=== PATIENT | female | born 1970 | race African-American/Black ===

== ENCOUNTER 2016-10-16 11:42 | Emergency (ER) | payer OTHER, SELFPAY ==
[2016-10-16 12:18] LABS: BASO # 0.1 K/mm3 (0.0-0.2); BASO % 1.9 % (0.0-1.0); EOS # 0.1 K/mm3 (0.0-0.50); EOS % 2.1 % (0.0-3.0); LARGE UNSTAINED CELL # 0.2 K/mm3 (0.0-0.4); LARGE UNSTAINED CELL % 2.5 % (0.0-4.0); LYMPH # 1.4 K/mm3 (1.5-4.5); LYMPH % 18.2 % (24.0-44.0); MEAN CORPUSCULAR HEMOGLOBIN 25.4 pg (27.0-33.0); MEAN CORPUSCULAR HGB CONC 32.2 g/dl (32.0-36.5); MEAN CORPUSCULAR VOLUME 78.7 fl (80.0-96.0); MONO # 0.3 K/mm3 (0.0-0.8); MONO % 4.3 % (0.0-5.0); NEUTROPHILS # 4.8 K/mm3 (1.8-7.7); NEUTROPHILS % 71.1 % (36.0-66.0); PLATELET COUNT, AUTOMATED 228 k/mm3 (150-450); RED CELL DISTRIBUTION WIDTH 17.7 % (11.5-14.5); WHITE BLOOD COUNT 6.8 K/mm3 (4.0-10.0)
[2016-10-16] MEDS ORDERED: PHENYTOIN INJ 250 MG/5 ML VIAL (J1165) As Ordered ONE (12:24)
[2016-10-16] MEDS ORDERED: ACETAMINOPHEN 325 MG TAB As Ordered ONE (12:38)
[2016-10-16 12:40] LABS: ANION GAP 10 MEQ/L (8-16); BLOOD UREA NITROGEN 5 MG/DL (7-18); CALCIUM LEVEL 8.5 MG/DL (8.5-10.1); CARBON DIOXIDE LEVEL 25 MEQ/L (21-32); CHLORIDE LEVEL 106 MEQ/L (98-107); CREATININE FOR GFR 0.83 MG/DL (0.55-1.02); GLOMERULAR FILTRATION RATE > 60.0 (>58); GLUCOSE, FASTING 94 MG/DL (70-105); HCG, SERUM QUANTITATIVE < 1.0 MIU/ML; POTASSIUM SERUM 4.1 MEQ/L (3.5-5.1); SODIUM LEVEL 141 MEQ/L (136-145)
[2016-10-16 13:30] LABS: AMPHETAMINES LEVEL URINE NEGATIVE (NEGATIVE); BENZODIAZEPINES URINE NEGATIVE (NEGATIVE); COCAINE METABOLITE URINE NEGATIVE (NEGATIVE); CONTROL LINE INT CTR LINE PRESENT; METHADONE URINE NEGATIVE (NEGATIVE); OPIATES URINE NEGATIVE (NEGATIVE); TRICYCLIC ANTIDEPRESS URINE NEGATIVE (NEGATIVE)
[2016-10-16] MEDS ORDERED: CLOPIDOGREL 75 MG TAB As Ordered ONE (13:55)
[2016-10-16] MEDS ORDERED: CARVedilol 6.25 MG TAB As Ordered ONE (13:55)
[2016-10-16] MEDS ORDERED: levETIRAcetam 250MG TABLET (KEPPRA) As Ordered ONE (13:55)
--- NOTE | 2016-10-16 14:32 | EDDOCDS ---
Physician Documentation [facility] Name: Sabrina Greenfield Age: 46 yrs Sex: Female : 1970 Arrival Date: 10/16/2016 Time: 11:42 Bed 1 Private MD: Disposition: 10/16/16 13:45 Discharged to Home/Self Care. Impression: Epilepsy and recurrent seizures. - Condition is Stable. - Discharge Instructions: Hypertension, Seizure, Adult. - Prescriptions for Lipitor 40 mg Oral tablet - take 1 tablet by ORAL route once daily; 20 tablet. Coreg 3.125 mg Oral Tablet - take 1 tablet by ORAL route every 12 hours with food; 40 tablet. Keppra 500 mg Oral Tablet - take 1 tablet by ORAL route every 12 hours; 40 tablet. Plavix 75 mg Oral Tablet - take 1 tablet by ORAL route once daily; 20 tablet. Lisinopril 2.5 mg Oral Tablet - take 1 tablet by ORAL route once daily; 20 tablet. Aspirin 81 mg - take 1 tablet by ORAL route once daily; 90 tablet. - Medication Reconciliation, Local Pharmacy Hours form. - [facility] up[facility]; When: As soon as possible; Reason: Continuance of care. Follow up: Dacia Avitia MD; When: Call to arrange an appointment; Reason: Continuance of care. Follow up: Anson Serna MD; When: Call to arrange an appointment; Reason: Continuance of care. - Problem is an acute exacerbation. - Symptoms have improved. Historical: - Allergies: no known allergies; - Home Meds: 1. Dilantin Oral 500 mg twice a day (Last dose: 09/30/2016) 2. carvedilol 3.125 mg oral tab 1 tab (Last dose: 09/27/2016) 3. Plavix 75 mg Oral tab 1 tab once daily (Last dose: 09/27/2016) 4. levetiracetam 500 mg oral tab 1 tab 2 times per day (Last dose: 09/27/2016) 5. lisinopril 2.5 mg Oral tab 1 tab once daily (Last dose: 09/27/2016) - PMHx: Seizures; Hypertension; Heart Murmur; - PSHx: Tubal ligation; - Social history: Smoking status: Patient uses tobacco products, current some day smoker. Patient uses street drugs, marijuana, Patient/guardian denies using alcohol, No barriers to communication noted, The patient speaks fluent Georgian, Speaks appropriately for age. - Family history: Not pertinent. - : The pt / caregiver states he / she is not on anticoagulants. Home medication list is obtained from the patient. - Exposure Risk Screening:: None identified. 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 7 in. (170.18 cm) (R); Pain 8/10; 11:56 Temp 98.2(O); jrd 12:00 BP 137 / 101 (auto/); ttb 12:01 Pulse 88 MON; Pulse Ox 100% ; ttb 12:15 BP 134 / 83 (auto/); ttb 12:15 Pulse 90 MON; Pulse Ox 100% ; ttb 12:30 BP 132 / 82 (auto/); ttb 12:31 Pulse 88 MON; Pulse Ox 100% ; ttb 12:45 BP 132 / 84 (auto/); ttb 12:45 Pulse 94 MON; Pulse Ox 98% ; ttb 13:10 BP 156 / 79 (auto/); ttb 13:11 Pulse 93 MON; Pulse Ox 100% ; ttb 13:30 BP 151 / 87 (auto/); ttb 13:30 Pulse 83 MON; Pulse Ox 98% ; ttb 13:45 BP 152 / 88 (auto/); ttb 13:46 Pulse 83 MON; Pulse Ox 98% ; ttb 13:59 BP 144 / 87 (auto/); ttb 13:59 Pulse 96 MON; Pulse Ox 100% ; ttb 14:15 BP 128 / 95 (auto/); ttb 14:15 Pulse 87 MON; Resp 18 S; Pulse Ox 100% on R/A; Pain 3/10; ttb 11:50 Body Mass Index 22.24 (64.41 kg, 170.18 cm) jrd MDM: 11:56 IV Saline Lock ordered. fg 11:57 CBC with Diff Ordered. EDMS 11:57 Basic Metabolic Profile Ordered. EDMS 11:57 Urinalysis Ordered. EDMS 11:57 Urine Culture Ordered. EDMS 11:57 Hcg, Serum Quantitative Ordered. EDMS 11:57 LORazepam 0.5 mg IVP once ordered. fg 12:17 Phenytoin 500 mg IVPB once over 30 mins; dilute in 100ml of NS ordered. ke 12:17 CT Head Without Contrast Ordered. EDMS 12:25 PHENYTOIN Ordered. EDMS 12:34 Urine Toxicology Ordered. EDMS 12:34 CBC with Diff Reviewed. ke 12:38 Acetaminophen Tablet 975 mg PO once ordered. ke 12:40 ETHYL ALCOHOL (ETHANOL) Ordered. EDMS 13:33 Financial registration complete. jp5 13:39 Basic Metabolic Profile Reviewed. ke 13:39 Urinalysis Reviewed. ke 13:39 PHENYTOIN Reviewed. ke 13:39 Urine Toxicology Reviewed. ke 13:39 Hcg, Serum Quantitative Reviewed. ke 13:39 ETHYL ALCOHOL (ETHANOL) Reviewed. ke 13:46 levETIRAcetam 500 mg PO once ordered. ke 13:46 carvedilol 3.125 mg PO once ordered. ke 13:46 Plavix - Clopidogrel 75 mg PO once ordered. ke 13:48 Keppra (short red top tube) Ordered. EDMS Administered Medications: 12:15 Not Given (no sz activity): LORazepam 0.5 mg IVP once ke 12:35 Drug: NS 0.9% 100 ml, Phenytoin 500 mg Route: IVPB; Infused Over: 30 mins; Site: right ttb antecubital; 13:20 Follow up: Response: No Adverse Reaction; No significant change.; IV Status: Completed ttb infusion; IV Intake: 100ml 12:41 Drug: Acetaminophen 975 mg [acetaminophen 325 mg tablet (3 tabs)] Route: PO; ttb 14:00 Drug: levETIRAcetam 500 mg [levetiracetam 250 mg tablet (2 tabs)] Route: PO; ttb 14:00 Drug: carvedilol 3.125 mg [carvedilol 3.125 mg tablet (1 tabs)] Route: PO; ttb 14:00 Drug: Plavix - Clopidogrel 75 mg [clopidogrel 75 mg tablet (1 tabs)] Route: PO; ttb Signatures: Dispatcher [employer] EDMS Haresh Peck, DIRECTOR OF DEVELOPMENT DIRECTOR OF DEVELOPMENT Lisandra Means RN RN ttb Reji Snow jp5 Daniella Pham MD MD fg The chart was reviewed and I authenticate all verbal orders and agree with the evaluation and treatment provided.Corrections: (The following items were deleted from the chart) 12:25 11:58 PHENYTOIN (DILANTIN)+LAB ordered. EDMS EDMS 12:39 12:34 ETHYL ALCOHOL (ETHANOL)+LAB ordered. EDMS EDMS MTDD
--- NOTE | 2016-10-16 14:32 | EDDOCDS ---
Nurse's Notes [facility] Name: Sabrina Greenfield Age: 46 yrs Sex: Female : 1970 Arrival Date: 10/16/2016 Time: 11:42 Bed 1 Private MD: Diagnosis: Epilepsy and recurrent seizures Presentation: 10/16 11:43 Presenting complaint: EMS states: pt woke up this morning in bed with neck pain, jaw ttb pain, bite lee on tongue -- consistent with previous seizure activities. Abrasion to right forehead. FS86 No IV line. EMS. Adult Sepsis Screening: Patient has new or worsening altered mentation (1 point). Patient's respiratory rate is less than 22. Systolic blood pressure is greater than 100. Patient has a qSOFA score of 1- Negative Sepsis Screen. Suicide/Homicide risk assessment- the patient denies having any suicidal and/or homicidal ideations and does not present with any other emotional, behavioral or mental health complaints. Status: Patient is not a patient service rep or dependent. Transition of care: patient was not received from another setting of care. 11:43 Acuity: GARRETT Level 3 ttb 11:43 Method Of Arrival: Ambulance ttb Triage Assessment: 11:50 General: Appears in no apparent distress, well nourished, well groomed, Behavior is ttb appropriate for age, cooperative, flat, pleasant, quiet. Pain: Location: head , neck and throat 8/10. Pt Declines HIV testing. Neurological: Level of Consciousness is awake, alert, Denies weakness blurred vision numbness Reports headache. Cardiovascular: Rhythm is sinus rhythm with unifocal PVCs Chest pain is denied. Respiratory: No deficits noted. Airway is patent Respiratory effort is even, unlabored. GI: Denies nausea, vomiting. Derm: Skin is normal. Injury Description: Abrasion sustained to forehead unsure of how she got it. 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 Dilantin Oral 500 mg twice a day (Last dose: 09/30/2016) 2. carvedilol 3.125 mg oral tab 1 tab (Last dose: 09/27/2016) 3. Plavix 75 mg Oral tab 1 tab once daily (Last dose: 09/27/2016) 4. levetiracetam 500 mg oral tab 1 tab 2 times per day (Last dose: 09/27/2016) 5. lisinopril 2.5 mg Oral tab 1 tab once daily (Last dose: 09/27/2016) - PMHx: Seizures; Hypertension; Heart Murmur; - PSHx: Tubal ligation; - Social history: Smoking status: Patient uses tobacco products, current some day smoker. Patient uses street drugs, marijuana, Patient/guardian denies using alcohol, No barriers to communication noted, The patient speaks fluent Estonian, Speaks appropriately for age. - Family history: Not pertinent. - : The pt / caregiver states he / she is not on anticoagulants. Home medication list is obtained from the patient. - Exposure Risk Screening:: None identified. Screenin:53 Screening information is obtained from the patient. Fall risk: At risk due to recent ttb seizure. The following interventions are performed due to a positive Fall Risk Screen: Fall Risk is added to Special Handling on the patient Summary Screen. A Fall Risk Bracelet was applied to the patient. Side Rails are placed in the up position. A Call Marinelli is given with instruction to call for help when getting out of bed. Assistance ADL's: requires no assistance with activities of daily living. Abuse/DV Screen: The patient / caregiver reports he/she is: not in a situation that causes fear, pain or injury. Nutritional screening: No deficits noted. Advance Directives: Currently, there is no health care proxy. home support is adequate. 11:54 Advance Directives: There is an active Power of Mechanical Cad Designer, deepthi greenfield [phone] [facility]. Assessment: 12:05 General: pt states she was hospitalized in [place] at [facility] in the beginning of the ttb month for seizures. Said she was told she "had a slight stroke". States she woke in bed today, wet, had been incont of urine, abrasion. . General: see triage assessment. Neurological: Denies weakness difficulty swallowing, paresthesias numbness. Cardiovascular: Heart tones S1 S2 present Chest pain is denied. Respiratory: Airway is patent Breath sounds are clear bilaterally. GI: Bowel sounds present X 4 quads. Derm: Skin is normal. 12:42 General: meds given as documented. Pt resting comfortably on stretcher.. General: ttb Appears in no apparent distress, comfortable, Behavior is cooperative. Pain: Location: headache : tylenol give as ordered. EENT: Denies difficulty swallowing. Cardiovascular: Rhythm is sinus rhythm with unifocal PVCs Chest pain is denied. Respiratory: Airway is patent Respiratory effort is even, unlabored. 13:30 Reassessment: Patient appears in no apparent distress at this time. pt resting on ttb stretcher. Able to get to commode without assist. Daughter at bedside. Daughter informs me of medications pt is on. Pt not on dilantin as reported upon arrival multiple times. . 14:00 Reassessment: Patient appears in no apparent distress at this time. Patient states ttb feeling better. pt states she is feeling better and is comfortable going home. Pt moved here and will get PCP this week. 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 Educated on use of plavix. . Neurological: Level of Consciousness is awake, alert, Denies weakness difficulty swallowing, paresthesias. Cardiovascular: Rhythm is sinus rhythm with unifocal PVCs Chest pain is denied. Respiratory: Airway is patent Respiratory effort is even, unlabored. GI: Denies nausea, vomiting, pain. Derm: Skin is normal. 14:00 General: meds given as ordered.. ttb 14:27 Reassessment: Patient appears in no apparent distress at this time. Patient states ttb feeling better. Patient states symptoms have improved. pt states she is ready to go home at this time. Daughter agrees. To f/u with primary this week....when enrolled in [employer]. Pt states headache improved.. Adult Sepsis Screening: The patient does not have new or worsening altered mentation. Patient's respiratory rate is less than 22. Systolic blood pressure is greater than 100. Patient has a qSOFA score of 0- Negative Sepsis Screen. Pain: Location: headache. Neurological: Level of Consciousness is awake, alert, Oriented to person, place, time, Moves all extremities. Speech is normal, Facial symmetry appears normal, Pupils are PERRLA, Denies weakness difficulty swallowing, paresthesias numbness. Cardiovascular: Chest pain is denied. Respiratory: Airway is patent Respiratory effort is even, unlabored, Denies cough, shortness of breath. GI: Denies nausea, vomiting, pain. Injury Description: No known injury. Vital Signs: 11:50 BP 135 / 95; Pulse 59; Resp 18; Pulse Ox 100% on R/A; Weight 64.41 kg (R); Height 5 ft. jrd 7 in. (170.18 cm) (R); Pain 8/10; 11:56 Temp 98.2(O); jrd 12:00 BP 137 / 101 (auto/); ttb 12:01 Pulse 88 MON; Pulse Ox 100% ; ttb 12:15 BP 134 / 83 (auto/); ttb 12:15 Pulse 90 MON; Pulse Ox 100% ; ttb 12:30 BP 132 / 82 (auto/); ttb 12:31 Pulse 88 MON; Pulse Ox 100% ; ttb 12:45 BP 132 / 84 (auto/); ttb 12:45 Pulse 94 MON; Pulse Ox 98% ; ttb 13:10 BP 156 / 79 (auto/); ttb 13:11 Pulse 93 MON; Pulse Ox 100% ; ttb 13:30 BP 151 / 87 (auto/); ttb 13:30 Pulse 83 MON; Pulse Ox 98% ; ttb 13:45 BP 152 / 88 (auto/); ttb 13:46 Pulse 83 MON; Pulse Ox 98% ; ttb 13:59 BP 144 / 87 (auto/); ttb 13:59 Pulse 96 MON; Pulse Ox 100% ; ttb 14:15 BP 128 / 95 (auto/); ttb 14:15 Pulse 87 MON; Resp 18 S; Pulse Ox 100% on R/A; Pain 3/10; ttb 11:50 Body Mass Index 22.24 (64.41 kg, 170.18 cm) jrd Vitals: 11:50 Log In Time N/A - ambulance arrival. ttb ED Course: 11:42 Patient visited by Rosamaria Leal, Social Media Job Titles. deg 11:42 Ursula Santana,RN is Primary Nurse. deg 11:42 Patient moved to Waiting deg 11:42 Patient moved to 1 deg 11:45 Triage Initiated ttb 11:51 Patient visited by Zhang Izquierdo PCA. jrd 11:53 The patient / caregiver is instructed regarding the plan of care and ED course. Patient ttb has correct armband on for positive identification. Placed in gown. Bed in low position. Call light in reach. Side rails up X2. quality assurance monitor on. Pulse ox on. NIBP on. 11:54 Seizure precautions initiated. ttb 12:01 Patient visited by Johanna Peterson RN. ead 12:01 Hcg, Serum Quantitative Sent. ttb 12:01 Basic Metabolic Profile Sent. ttb 12:01 CBC with Diff Sent. ttb 12:01 Inserted saline lock: 20 gauge in right antecubital area and blood collected. The ead patient tolerated the procedure well. 12:05 Labs drawn. (by ED staff). ttb 12:07 Patient visited by Lisandra Yanes RN. ttb 12:14 Haresh Peck FNP is PHCP. ke 12:14 Patient visited by Haresh Peck FNP. ke 12:15 Patient visited by Haresh Peck FNP. ke 12:42 Patient visited by Lisandra Yanes RN. ttb 13:12 Patient visited by Haresh Peck FNP. ke 13:41 Patient visited by Lisandra Yanes RN. ttb 13:43 [facility] is Referral Physician. ke 13:44 Dacia Avitia MD is Referral Physician. ke 13:44 Ansno Serna MD is Referral Physician. ke 14:00 Keppra (short red top tube) Sent. ttb 14:07 Patient visited by Lisandra Yanes RN. ttb 14:15 Discontinued IV lock intact, bleeding controlled, pressure dressing applied, No ttb redness/swelling at site. No procedures done that require assistance. Urine collected. Clean catch specimen. Administered Medications: 12:15 Not Given (no sz activity): LORazepam 0.5 mg IVP once ke 12:35 Drug: NS 0.9% 100 ml, Phenytoin 500 mg Route: IVPB; Infused Over: 30 mins; Site: right ttb antecubital; 13:20 Follow up: Response: No Adverse Reaction; No significant change.; IV Status: Completed ttb infusion; IV Intake: 100ml 12:41 Drug: Acetaminophen 975 mg [acetaminophen 325 mg tablet (3 tabs)] Route: PO; ttb 14:00 Drug: levETIRAcetam 500 mg [levetiracetam 250 mg tablet (2 tabs)] Route: PO; ttb 14:00 Drug: carvedilol 3.125 mg [carvedilol 3.125 mg tablet (1 tabs)] Route: PO; ttb 14:00 Drug: Plavix - Clopidogrel 75 mg [clopidogrel 75 mg tablet (1 tabs)] Route: PO; ttb Intake: 13:20 IV: 100.00ml; Total: 100.00ml. ttb Order Results: Lab Order: CBC with Diff; SPEC'M 10/16/16 12:00 Test: WHITE BLOOD COUNT; Value: 6.8; Range: 4.0-10.0; Units: K/mm3; Status: F Test: RED BLOOD COUNT; Value: 4.61; Range: 4.00-5.40; Units: M/mm3; Status: F Test: HEMOGLOBIN; Value: 11.7; Range: 12.0-16.0; Abnormal: Below low normal; Units: g/dl; Status: F Test: HEMATOCRIT; Value: 36.3; Range: 36.0-47.0; Units: %; Status: F Test: MEAN CORPUSCULAR VOLUME; Value: 78.7; Range: 80.0-96.0; Abnormal: Below low normal; Units: fl; Status: F Test: MEAN CORPUSCULAR HEMOGLOBIN; Value: 25.4; Range: 27.0-33.0; Abnormal: Below low normal; Units: pg; Status: F Test: MEAN CORPUSCULAR HGB CONC; Value: 32.2; Range: 32.0-36.5; Units: g/dl; Status: F Test: RED CELL DISTRIBUTION WIDTH; Value: 17.7; Range: 11.5-14.5; Abnormal: Above high normal; Units: %; Status: F Test: PLATELET COUNT, AUTOMATED; Value: 228; Range: 150-450; Units: k/mm3; Status: F Test: NEUTROPHILS %; Value: 71.1; Range: 36.0-66.0; Abnormal: Above high normal; Units: %; Status: F Test: LYMPH %; Value: 18.2; Range: 24.0-44.0; Abnormal: Below low normal; Units: %; Status: F Test: MONO %; Value: 4.3; Range: 0.0-5.0; Units: %; Status: F Test: EOS %; Value: 2.1; Range: 0.0-3.0; Units: %; Status: F Test: BASO %; Value: 1.9; Range: 0.0-1.0; Abnormal: Above high normal; Units: %; Status: F Test: LARGE UNSTAINED CELL %; Value: 2.5; Range: 0.0-4.0; Units: %; Status: F Test: NEUTROPHILS #; Value: 4.8; Range: 1.8-7.7; Units: K/mm3; Status: F Test: LYMPH #; Value: 1.4; Range: 1.5-4.5; Abnormal: Below low normal; Units: K/mm3; Status: F Test: MONO #; Value: 0.3; Range: 0.0-0.8; Units: K/mm3; Status: F Test: EOS #; Value: 0.1; Range: 0.0-0.50; Units: K/mm3; Status: F Test: BASO #; Value: 0.1; Range: 0.0-0.2; Units: K/mm3; Status: F Test: LARGE UNSTAINED CELL #; Value: 0.2; Range: 0.0-0.4; Units: K/mm3; Status: F Lab Order: Basic Metabolic Profile; SPEC'M 10/16/16 12:00 Test: GLUCOSE, FASTING; Value: 94; Range: 70-105; Units: MG/DL; Status: F Test: BLOOD UREA NITROGEN; Value: 5; Range: 7-18; Abnormal: Below low normal; Units: MG/DL; Status: F Test: CREATININE FOR GFR; Value: 0.83; Range: 0.55-1.02; Units: MG/DL; Status: F Test: GLOMERULAR FILTRATION RATE; Value: > 60.0; Range: >58; Status: F Test: SODIUM LEVEL; Value: 141; Range: 136-145; Units: MEQ/L; Status: F Test: POTASSIUM SERUM; Value: 4.1; Range: 3.5-5.1; Units: MEQ/L; Status: F Test: CHLORIDE LEVEL; Value: 106; Range: 98-107; Units: MEQ/L; Status: F Test: CARBON DIOXIDE LEVEL; Value: 25; Range: 21-32; Units: MEQ/L; Status: F Test: ANION GAP; Value: 10; Range: 8-16; Units: MEQ/L; Status: F Test: CALCIUM LEVEL; Value: 8.5; Range: 8.5-10.1; Units: MG/DL; Status: F Test Note: ; Units are mL/min/1.73 m2 Chronic Kidney Disease Staging per NKF: Stage I & II GFR >=60 Normal to Mildly Decreased Stage III GFR 30-59 Moderately Decreased Stage IV GFR 15-29 Severely Decreased Stage V GFR <15 Very Little GFR Left ESRD GFR <15 on BENCH MOVER Lab Order: Urinalysis; SPEC'M 10/16/16 11:59 Test: APPEARANCE, URINE; Value: CLEAR; Range: CLEAR; Status: F Test: COLOR, URINE; Value: STRAW; Range: YELLOW; Status: F Test: PH,URINE; Value: 7.0; Range: 5.0-9.0; Units: UNITS; Status: F Test: SPECIFIC GRAVITY URINE AUTO; Value: 1.008; Range: 1.002-1.035; Status: F Test: PROTEIN, URINE AUTO; Value: NEGATIVE; Range: NEGATIVE; Units: mg/dL; Status: F Test: GLUCOSE, URINE (UA) AUTO; Value: NEGATIVE; Range: NEGATIVE; Units: mg/dL; Status: F Test: KETONE, URINE AUTO; Value: NEGATIVE; Range: NEGATIVE; Units: mg/dL; Status: F Test: UROBILINOGEN, URINE AUTO; Value: 0.2; Range: 0.0-2.0; Units: mg/dL; Status: F Test: BILIRUBIN, URINE AUTO; Value: NEGATIVE; Range: NEGATIVE; Status: F Test: NITRITE, URINE AUTO; Value: NEGATIVE; Range: NEGATIVE; Status: F Test: LEUKOCYTE ESTERASE, URINE AUTO; Value: NEGATIVE; Range: NEGATIVE; Status: F Test: BLOOD, URINE BLOOD; Value: NEGATIVE; Range: NEGATIVE; Status: F Test: WBC, URINE AUTO; Value: 1; Range: 0-3; Units: /HPF; Status: F Test: RBC, URINE AUTO; Value: 0; Range: 0-3; Units: /HPF; Status: F Test: BACTERIA, URINE AUTO; Value: 1+; Range: NEGATIVE; Abnormal: Above high normal; Status: F Test: SQUAMOUS EPITHELIAL CELL UR AU; Value: 0; Range: 0-6; Units: /HPF; Status: F Test: HYALINE CAST, URINE AUTO; Value: 0; Range: 0-1; Units: /LPF; Status: F Lab Order: Hcg, Serum Quantitative; SPEC'M 10/16/16 12:00 Test: HCG, SERUM QUANTITATIVE; Value: < 1.0; Units: MIU/ML; Status: F Test Note: ; GESTATIONAL AGE APPROXIMATE HCG RANGE (MIU/ML) 0.2-1 WEEK 5-50 1-2 WEEKS 50-500 2-3 WEEKS 100-5,000 3-4 WEEKS 500-10,000 4-5 WEEKS 1,000-50,000 5-6 WEEKS 10,000-100,000 6-8 WEEKS 15,000-200,000 2-3 MONTHS 10,000-100,000 NON FEMALES LESS THAN 3.0 Patient samples may contain human heterophilic antibodies that could react with immunoassays to give falsely elevated or depressed results. This assay has been designed to minimize interference from heterophilic antibodies. Elevated hCG levels have also been associated with trophoblastic disease and nontrophoblastic neoplasms. The possibility of having these diseases should be considered before a diagnosis of is made. This test is not intended for use as a surrogate marker for aiding in the diagnosis or monitoring the treatment of cancer patients. Siemens [employer]agon methodology. Lab Order: PHENYTOIN; SPEC'M 10/16/16 12:00 Test: PHENYTOIN (DILANTIN); Value: < 0.4; Range: 10.0-20.0; Abnormal: Below low normal; Units: UG/ML; Status: F Lab Order: Urine Toxicology; SPEC'M 10/16/16 11:59 Test: AMPHETAMINES LEVEL URINE; Value: NEGATIVE; Range: NEGATIVE; Status: F Test: BARBITURATES URINE; Value: NEGATIVE; Range: NEGATIVE; Status: F Test: BENZODIAZEPINES URINE; Value: NEGATIVE; Range: NEGATIVE; Status: F Test: CANNABINOIDS URINE; Value: POSITIVE; Range: NEGATIVE; Abnormal: Above high normal; Status: F Test: COCAINE METABOLITE URINE; Value: NEGATIVE; Range: NEGATIVE; Status: F Test: METHADONE URINE; Value: NEGATIVE; Range: NEGATIVE; Status: F Test: OPIATES URINE; Value: NEGATIVE; Range: NEGATIVE; Status: F Test: TRICYCLIC ANTIDEPRESS URINE; Value: NEGATIVE; Range: NEGATIVE; Status: F Test Note: ; FALSE POSITIVE RESULTS CAN BE CAUSED BY THE USE OF PANTOPRAZOLE (PROTONIX). Lab Order: ETHYL ALCOHOL (ETHANOL); SPEC'M 10/16/16 12:00 Test: ETHYL ALCOHOL (ETHANOL); Value: < 0.003; Range: 0.000-0.010; Units: %; Status: F Outcome: 13:45 Discharge ordered by Provider. ke 14:15 CT Study completed. Property :Personal belongings accompany Pt. ttb 14:27 Discharge Assessment: Patient awake, alert and oriented x 3. No cognitive and/or ttb functional deficits noted. Patient verbalized understanding of disposition instructions. Patient awake and alert. patient administered narcotics - no. The following High Risk Discharge criteria are identified: None. Discharged to home ambulatory, via wheelchair, with family. Condition: good Condition: stable Condition: improved. Discharge instructions given to patient, family, Instructed on discharge instructions, follow up and referral plans. medication usage, safety practices, Demonstrated understanding of instructions, medications, Pt was receptive of discharge instructions/ teaching. Prescriptions given X x6. 14:31 Patient left the ED. ttb Signatures: Rosamaria Leal, Social Media Job Titles Unit deg Haresh Peck, Lisandra Verdin RN RN ttb Johanna PetersonRN RN Zhang Fontanez, SHIRA CORE LAYER MACHINE OPERATOR jrzacarias Corrections: (The following items were deleted from the chart) 12:25 12:01 PHENYTOIN (DILANTIN)+LAB sent. ttb EDMS MTDD
--- NOTE | 2016-10-17 11:16 | REP ---
CT of the brain without IV contrast: There are no comparisons. There is no hemorrhage. There is no edema, mass effect or midline shift. The cortical stripe is unremarkable. Ventricles are normal size and midline. The Impression: There is no hemorrhage, acute infarct or mass. Essentially negative CT study of the brain. Signed by Johnny James MD 10/16/2016 01:04 P
--- NOTE | 2016-10-18 15:32 | EDDOCDS ---
Physician Documentation [facility] Name: Sabrina Greenfield Age: 46 yrs Sex: Female : 1970 Arrival Date: 10/16/2016 Time: 11:42 Bed 1 Private MD: Disposition: 10/16/16 13:45 Discharged to Home/Self Care. Impression: Epilepsy and recurrent seizures. - Condition is Stable. - Discharge Instructions: Hypertension, Seizure, Adult. - Prescriptions for Lipitor 40 mg Oral tablet - take 1 tablet by ORAL route once daily; 20 tablet. Coreg 3.125 mg Oral Tablet - take 1 tablet by ORAL route every 12 hours with food; 40 tablet. Keppra 500 mg Oral Tablet - take 1 tablet by ORAL route every 12 hours; 40 tablet. Plavix 75 mg Oral Tablet - take 1 tablet by ORAL route once daily; 20 tablet. Lisinopril 2.5 mg Oral Tablet - take 1 tablet by ORAL route once daily; 20 tablet. Aspirin 81 mg - take 1 tablet by ORAL route once daily; 90 tablet. - Medication Reconciliation, Local Pharmacy Hours form. - [facility]; When: As soon as possible; Reason: Continuance of care. Follow up: Dacia Avitia MD; When: Call to arrange an appointment; Reason: Continuance of care. Follow up: Anson Serna MD; When: Call to arrange an appointment; Reason: Continuance of care. - Problem is an acute exacerbation. - Symptoms have improved. Historical: - Allergies: no known allergies; - Home Meds: 1. Dilantin Oral 500 mg twice a day (Last dose: 09/30/2016) 2. carvedilol 3.125 mg oral tab 1 tab (Last dose: 09/27/2016) 3. Plavix 75 mg Oral tab 1 tab once daily (Last dose: 09/27/2016) 4. levetiracetam 500 mg oral tab 1 tab 2 times per day (Last dose: 09/27/2016) 5. lisinopril 2.5 mg Oral tab 1 tab once daily (Last dose: 09/27/2016) - PMHx: Seizures; Hypertension; Heart Murmur; - PSHx: Tubal ligation; - Social history: Smoking status: Patient uses tobacco products, current some day smoker. Patient uses street drugs, marijuana, Patient/guardian denies using alcohol, No barriers to communication noted, The patient speaks fluent Nauruan, Speaks appropriately for age. - Family history: Not pertinent. - : The pt / caregiver states he / she is not on anticoagulants. Home medication list is obtained from the patient. - Exposure Risk Screening:: None identified. 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 7 in. (170.18 cm) (R); Pain 8/10; 11:56 Temp 98.2(O); jrd 12:00 BP 137 / 101 (auto/); ttb 12:01 Pulse 88 MON; Pulse Ox 100% ; ttb 12:15 BP 134 / 83 (auto/); ttb 12:15 Pulse 90 MON; Pulse Ox 100% ; ttb 12:30 BP 132 / 82 (auto/); ttb 12:31 Pulse 88 MON; Pulse Ox 100% ; ttb 12:45 BP 132 / 84 (auto/); ttb 12:45 Pulse 94 MON; Pulse Ox 98% ; ttb 13:10 BP 156 / 79 (auto/); ttb 13:11 Pulse 93 MON; Pulse Ox 100% ; ttb 13:30 BP 151 / 87 (auto/); ttb 13:30 Pulse 83 MON; Pulse Ox 98% ; ttb 13:45 BP 152 / 88 (auto/); ttb 13:46 Pulse 83 MON; Pulse Ox 98% ; ttb 13:59 BP 144 / 87 (auto/); ttb 13:59 Pulse 96 MON; Pulse Ox 100% ; ttb 14:15 BP 128 / 95 (auto/); ttb 14:15 Pulse 87 MON; Resp 18 S; Pulse Ox 100% on R/A; Pain 3/10; ttb 11:50 Body Mass Index 22.24 (64.41 kg, 170.18 cm) jrd MDM: 11:56 IV Saline Lock ordered. fg 11:57 CBC with Diff Ordered. EDMS 11:57 Basic Metabolic Profile Ordered. EDMS 11:57 Urinalysis Ordered. EDMS 11:57 Urine Culture Ordered. EDMS 11:57 Hcg, Serum Quantitative Ordered. EDMS 11:57 LORazepam 0.5 mg IVP once ordered. fg 12:17 Phenytoin 500 mg IVPB once over 30 mins; dilute in 100ml of NS ordered. ke 12:17 CT Head Without Contrast Ordered. EDMS 12:25 PHENYTOIN Ordered. EDMS 12:34 Urine Toxicology Ordered. EDMS 12:34 CBC with Diff Reviewed. ke 12:38 Acetaminophen Tablet 975 mg PO once ordered. ke 12:40 ETHYL ALCOHOL (ETHANOL) Ordered. EDMS 13:33 Financial registration complete. jp5 13:39 Basic Metabolic Profile Reviewed. ke 13:39 Urinalysis Reviewed. ke 13:39 PHENYTOIN Reviewed. ke 13:39 Urine Toxicology Reviewed. ke 13:39 Hcg, Serum Quantitative Reviewed. ke 13:39 ETHYL ALCOHOL (ETHANOL) Reviewed. ke 13:46 levETIRAcetam 500 mg PO once ordered. ke 13:46 carvedilol 3.125 mg PO once ordered. ke 13:46 Plavix - Clopidogrel 75 mg PO once ordered. ke 13:48 Keppra (short red top tube) Ordered. EDMS 14:45 [facility] [place] Agreement was scanned into Normal and attached to record. jp5 18:47 T-Sheet-- Draft Copy was scanned into Normal and attached to record. klr 10/17 10:43 PCR was scanned into Normal and attached to record. gb Administered Medications: 10/16 12:15 Not Given (no sz activity): LORazepam 0.5 mg IVP once ke 12:35 Drug: NS 0.9% 100 ml, Phenytoin 500 mg Route: IVPB; Infused Over: 30 mins; Site: right ttb antecubital; 13:20 Follow up: Response: No Adverse Reaction; No significant change.; IV Status: Completed ttb infusion; IV Intake: 100ml 12:41 Drug: Acetaminophen 975 mg [acetaminophen 325 mg tablet (3 tabs)] Route: PO; ttb 14:00 Drug: levETIRAcetam 500 mg [levetiracetam 250 mg tablet (2 tabs)] Route: PO; ttb 14:00 Drug: carvedilol 3.125 mg [carvedilol 3.125 mg tablet (1 tabs)] Route: PO; ttb 14:00 Drug: Plavix - Clopidogrel 75 mg [clopidogrel 75 mg tablet (1 tabs)] Route: PO; ttb Signatures: Dispatcher [employer] EDMS Helga Reddy, Haresh Bueno, TINO FISHER DIP NET Lisandra Means, RN RN ttb Reji Snow jp5 Daniella Pham MD MD fg Redder, Kathie klr The chart was reviewed and I authenticate all verbal orders and agree with the evaluation and treatment provided.Corrections: (The following items were deleted from the chart) 12:25 11:58 PHENYTOIN (DILANTIN)+LAB ordered. EDMS EDMS 12:39 12:34 ETHYL ALCOHOL (ETHANOL)+LAB ordered. EDMS EDMS Attachments: 14:45 [facility] [place] Agreement jp5 18:47 T-Sheet-- Draft Copy klr Chart Complete MTDSummer
--- NOTE | 2016-10-18 15:32 | EDDOCDS ---
Physician Documentation [facility] Name: Sabrina Greenfield Age: 46 yrs Sex: Female : 1970 Arrival Date: 10/16/2016 Time: 11:42 Bed 1 Private MD: Disposition: 10/16/16 13:45 Discharged to Home/Self Care. Impression: Epilepsy and recurrent seizures. - Condition is Stable. - Discharge Instructions: Hypertension, Seizure, Adult. - Prescriptions for Lipitor 40 mg Oral tablet - take 1 tablet by ORAL route once daily; 20 tablet. Coreg 3.125 mg Oral Tablet - take 1 tablet by ORAL route every 12 hours with food; 40 tablet. Keppra 500 mg Oral Tablet - take 1 tablet by ORAL route every 12 hours; 40 tablet. Plavix 75 mg Oral Tablet - take 1 tablet by ORAL route once daily; 20 tablet. Lisinopril 2.5 mg Oral Tablet - take 1 tablet by ORAL route once daily; 20 tablet. Aspirin 81 mg - take 1 tablet by ORAL route once daily; 90 tablet. - Medication Reconciliation, Local Pharmacy Hours form. - [facility]; When: As soon as possible; Reason: Continuance of care. Follow up: Dacia Avitia MD; When: Call to arrange an appointment; Reason: Continuance of care. Follow up: Anson Serna MD; When: Call to arrange an appointment; Reason: Continuance of care. - Problem is an acute exacerbation. - Symptoms have improved. Historical: - Allergies: no known allergies; - Home Meds: 1. Dilantin Oral 500 mg twice a day (Last dose: 09/30/2016) 2. carvedilol 3.125 mg oral tab 1 tab (Last dose: 09/27/2016) 3. Plavix 75 mg Oral tab 1 tab once daily (Last dose: 09/27/2016) 4. levetiracetam 500 mg oral tab 1 tab 2 times per day (Last dose: 09/27/2016) 5. lisinopril 2.5 mg Oral tab 1 tab once daily (Last dose: 09/27/2016) - PMHx: Seizures; Hypertension; Heart Murmur; - PSHx: Tubal ligation; - Social history: Smoking status: Patient uses tobacco products, current some day smoker. Patient uses street drugs, marijuana, Patient/guardian denies using alcohol, No barriers to communication noted, The patient speaks fluent Ukrainian, Speaks appropriately for age. - Family history: Not pertinent. - : The pt / caregiver states he / she is not on anticoagulants. Home medication list is obtained from the patient. - Exposure Risk Screening:: None identified. 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 7 in. (170.18 cm) (R); Pain 8/10; 11:56 Temp 98.2(O); jrd 12:00 BP 137 / 101 (auto/); ttb 12:01 Pulse 88 MON; Pulse Ox 100% ; ttb 12:15 BP 134 / 83 (auto/); ttb 12:15 Pulse 90 MON; Pulse Ox 100% ; ttb 12:30 BP 132 / 82 (auto/); ttb 12:31 Pulse 88 MON; Pulse Ox 100% ; ttb 12:45 BP 132 / 84 (auto/); ttb 12:45 Pulse 94 MON; Pulse Ox 98% ; ttb 13:10 BP 156 / 79 (auto/); ttb 13:11 Pulse 93 MON; Pulse Ox 100% ; ttb 13:30 BP 151 / 87 (auto/); ttb 13:30 Pulse 83 MON; Pulse Ox 98% ; ttb 13:45 BP 152 / 88 (auto/); ttb 13:46 Pulse 83 MON; Pulse Ox 98% ; ttb 13:59 BP 144 / 87 (auto/); ttb 13:59 Pulse 96 MON; Pulse Ox 100% ; ttb 14:15 BP 128 / 95 (auto/); ttb 14:15 Pulse 87 MON; Resp 18 S; Pulse Ox 100% on R/A; Pain 3/10; ttb 11:50 Body Mass Index 22.24 (64.41 kg, 170.18 cm) jrd MDM: 11:56 IV Saline Lock ordered. fg 11:57 CBC with Diff Ordered. EDMS 11:57 Basic Metabolic Profile Ordered. EDMS 11:57 Urinalysis Ordered. EDMS 11:57 Urine Culture Ordered. EDMS 11:57 Hcg, Serum Quantitative Ordered. EDMS 11:57 LORazepam 0.5 mg IVP once ordered. fg 12:17 Phenytoin 500 mg IVPB once over 30 mins; dilute in 100ml of NS ordered. ke 12:17 CT Head Without Contrast Ordered. EDMS 12:25 PHENYTOIN Ordered. EDMS 12:34 Urine Toxicology Ordered. EDMS 12:34 CBC with Diff Reviewed. ke 12:38 Acetaminophen Tablet 975 mg PO once ordered. ke 12:40 ETHYL ALCOHOL (ETHANOL) Ordered. EDMS 13:33 Financial registration complete. jp5 13:39 Basic Metabolic Profile Reviewed. ke 13:39 Urinalysis Reviewed. ke 13:39 PHENYTOIN Reviewed. ke 13:39 Urine Toxicology Reviewed. ke 13:39 Hcg, Serum Quantitative Reviewed. ke 13:39 ETHYL ALCOHOL (ETHANOL) Reviewed. ke 13:46 levETIRAcetam 500 mg PO once ordered. ke 13:46 carvedilol 3.125 mg PO once ordered. ke 13:46 Plavix - Clopidogrel 75 mg PO once ordered. ke 13:48 Keppra (short red top tube) Ordered. EDMS 14:45 [facility] [place] was scanned into [employer] and attached to record. jp5 18:47 T-Sheet-- Draft Copy was scanned into [employer] and attached to record. klr 10/17 10:43 PCR was scanned into [employer] and attached to record. gb Administered Medications: 10/16 12:15 Not Given (no sz activity): LORazepam 0.5 mg IVP once ke 12:35 Drug: NS 0.9% 100 ml, Phenytoin 500 mg Route: IVPB; Infused Over: 30 mins; Site: right ttb antecubital; 13:20 Follow up: Response: No Adverse Reaction; No significant change.; IV Status: Completed ttb infusion; IV Intake: 100ml 12:41 Drug: Acetaminophen 975 mg [acetaminophen 325 mg tablet (3 tabs)] Route: PO; ttb 14:00 Drug: levETIRAcetam 500 mg [levetiracetam 250 mg tablet (2 tabs)] Route: PO; ttb 14:00 Drug: carvedilol 3.125 mg [carvedilol 3.125 mg tablet (1 tabs)] Route: PO; ttb 14:00 Drug: Plavix - Clopidogrel 75 mg [clopidogrel 75 mg tablet (1 tabs)] Route: PO; ttb Signatures: Dispatcher [employer] EDMS Helga Reddy, Haresh Bueno, TINO RUN BOAT OPERATOR Lisandra Means, RN RN ttb Reji Snow jp5 Daniella Pham MD MD fg Redder, Kathie klr The chart was reviewed and I authenticate all verbal orders and agree with the evaluation and treatment provided.Corrections: (The following items were deleted from the chart) 12:25 11:58 PHENYTOIN (DILANTIN)+LAB ordered. EDMS EDMS 12:39 12:34 ETHYL ALCOHOL (ETHANOL)+LAB ordered. EDMS EDMS Attachments: 14:45 [facility] [place] jp5 18:47 T-Sheet-- Draft Copy klr Chart Complete MTDSummer
--- NOTE | 2016-10-18 15:32 | EDDOCDS ---
Nurse's Notes [facility] Name: Sabrina Greenfield Age: 46 yrs Sex: Female : 1970 Arrival Date: 10/16/2016 Time: 11:42 Bed 1 Private MD: Diagnosis: Epilepsy and recurrent seizures Presentation: 10/16 11:43 Presenting complaint: EMS states: pt woke up this morning in bed with neck pain, jaw ttb pain, bite lee on tongue -- consistent with previous seizure activities. Abrasion to right forehead. FS86 No IV line. EMS. Adult Sepsis Screening: Patient has new or worsening altered mentation (1 point). Patient's respiratory rate is less than 22. Systolic blood pressure is greater than 100. Patient has a qSOFA score of 1- Negative Sepsis Screen. Suicide/Homicide risk assessment- the patient denies having any suicidal and/or homicidal ideations and does not present with any other emotional, behavioral or mental health complaints. Status: Patient is not a service tech or dependent. Transition of care: patient was not received from another setting of care. 11:43 Acuity: GARRETT Level 3 ttb 11:43 Method Of Arrival: Ambulance ttb Triage Assessment: 11:50 General: Appears in no apparent distress, well nourished, well groomed, Behavior is ttb appropriate for age, cooperative, flat, pleasant, quiet. Pain: Location: head , neck and throat 8/10. Pt Declines HIV testing. Neurological: Level of Consciousness is awake, alert, Denies weakness blurred vision numbness Reports headache. Cardiovascular: Rhythm is sinus rhythm with unifocal PVCs Chest pain is denied. Respiratory: No deficits noted. Airway is patent Respiratory effort is even, unlabored. GI: Denies nausea, vomiting. Derm: Skin is normal. Injury Description: Abrasion sustained to forehead unsure of how she got it. 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 Dilantin Oral 500 mg twice a day (Last dose: 09/30/2016) 2. carvedilol 3.125 mg oral tab 1 tab (Last dose: 09/27/2016) 3. Plavix 75 mg Oral tab 1 tab once daily (Last dose: 09/27/2016) 4. levetiracetam 500 mg oral tab 1 tab 2 times per day (Last dose: 09/27/2016) 5. lisinopril 2.5 mg Oral tab 1 tab once daily (Last dose: 09/27/2016) - PMHx: Seizures; Hypertension; Heart Murmur; - PSHx: Tubal ligation; - Social history: Smoking status: Patient uses tobacco products, current some day smoker. Patient uses street drugs, marijuana, Patient/guardian denies using alcohol, No barriers to communication noted, The patient speaks fluent Khmer, Speaks appropriately for age. - Family history: Not pertinent. - : The pt / caregiver states he / she is not on anticoagulants. Home medication list is obtained from the patient. - Exposure Risk Screening:: None identified. Screenin:53 Screening information is obtained from the patient. Fall risk: At risk due to recent ttb seizure. The following interventions are performed due to a positive Fall Risk Screen: Fall Risk is added to Special Handling on the patient Summary Screen. A Fall Risk Bracelet was applied to the patient. Side Rails are placed in the up position. A Call Marinelli is given with instruction to call for help when getting out of bed. Assistance ADL's: requires no assistance with activities of daily living. Abuse/DV Screen: The patient / caregiver reports he/she is: not in a situation that causes fear, pain or injury. Nutritional screening: No deficits noted. Advance Directives: Currently, there is no health care proxy. home support is adequate. 11:54 Advance Directives: There is an active Power of Doctor Of Naprapathy, deepthi greenfield [phone] [facility]. Assessment: 12:05 General: pt states she was hospitalized in [place] at [facility] in the beginning of the ttb month for seizures. Said she was told she "had a slight stroke". States she woke in bed today, wet, had been incont of urine, abrasion. . General: see triage assessment. Neurological: Denies weakness difficulty swallowing, paresthesias numbness. Cardiovascular: Heart tones S1 S2 present Chest pain is denied. Respiratory: Airway is patent Breath sounds are clear bilaterally. GI: Bowel sounds present X 4 quads. Derm: Skin is normal. 12:42 General: meds given as documented. Pt resting comfortably on stretcher.. General: ttb Appears in no apparent distress, comfortable, Behavior is cooperative. Pain: Location: headache : tylenol give as ordered. EENT: Denies difficulty swallowing. Cardiovascular: Rhythm is sinus rhythm with unifocal PVCs Chest pain is denied. Respiratory: Airway is patent Respiratory effort is even, unlabored. 13:30 Reassessment: Patient appears in no apparent distress at this time. pt resting on ttb stretcher. Able to get to commode without assist. Daughter at bedside. Daughter informs me of medications pt is on. Pt not on dilantin as reported upon arrival multiple times. . 14:00 Reassessment: Patient appears in no apparent distress at this time. Patient states ttb feeling better. pt states she is feeling better and is comfortable going home. Pt moved here and will get PCP this week. 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 Educated on use of plavix. . Neurological: Level of Consciousness is awake, alert, Denies weakness difficulty swallowing, paresthesias. Cardiovascular: Rhythm is sinus rhythm with unifocal PVCs Chest pain is denied. Respiratory: Airway is patent Respiratory effort is even, unlabored. GI: Denies nausea, vomiting, pain. Derm: Skin is normal. 14:00 General: meds given as ordered.. ttb 14:27 Reassessment: Patient appears in no apparent distress at this time. Patient states ttb feeling better. Patient states symptoms have improved. pt states she is ready to go home at this time. Daughter agrees. To f/u with primary this week....when enrolled in [employer]. Pt states headache improved.. Adult Sepsis Screening: The patient does not have new or worsening altered mentation. Patient's respiratory rate is less than 22. Systolic blood pressure is greater than 100. Patient has a qSOFA score of 0- Negative Sepsis Screen. Pain: Location: headache. Neurological: Level of Consciousness is awake, alert, Oriented to person, place, time, Moves all extremities. Speech is normal, Facial symmetry appears normal, Pupils are PERRLA, Denies weakness difficulty swallowing, paresthesias numbness. Cardiovascular: Chest pain is denied. Respiratory: Airway is patent Respiratory effort is even, unlabored, Denies cough, shortness of breath. GI: Denies nausea, vomiting, pain. Injury Description: No known injury. Vital Signs: 11:50 BP 135 / 95; Pulse 59; Resp 18; Pulse Ox 100% on R/A; Weight 64.41 kg (R); Height 5 ft. jrd 7 in. (170.18 cm) (R); Pain 8/10; 11:56 Temp 98.2(O); jrd 12:00 BP 137 / 101 (auto/); ttb 12:01 Pulse 88 MON; Pulse Ox 100% ; ttb 12:15 BP 134 / 83 (auto/); ttb 12:15 Pulse 90 MON; Pulse Ox 100% ; ttb 12:30 BP 132 / 82 (auto/); ttb 12:31 Pulse 88 MON; Pulse Ox 100% ; ttb 12:45 BP 132 / 84 (auto/); ttb 12:45 Pulse 94 MON; Pulse Ox 98% ; ttb 13:10 BP 156 / 79 (auto/); ttb 13:11 Pulse 93 MON; Pulse Ox 100% ; ttb 13:30 BP 151 / 87 (auto/); ttb 13:30 Pulse 83 MON; Pulse Ox 98% ; ttb 13:45 BP 152 / 88 (auto/); ttb 13:46 Pulse 83 MON; Pulse Ox 98% ; ttb 13:59 BP 144 / 87 (auto/); ttb 13:59 Pulse 96 MON; Pulse Ox 100% ; ttb 14:15 BP 128 / 95 (auto/); ttb 14:15 Pulse 87 MON; Resp 18 S; Pulse Ox 100% on R/A; Pain 3/10; ttb 11:50 Body Mass Index 22.24 (64.41 kg, 170.18 cm) jrd Vitals: 11:50 Log In Time N/A - ambulance arrival. ttb ED Course: 11:42 Patient visited by Rosamaria Leal, Roller Varnisher. deg 11:42 Ursula Santana,RN is Primary Nurse. deg 11:42 Patient moved to Waiting deg 11:42 Patient moved to 1 deg 11:45 Triage Initiated ttb 11:51 Patient visited by Zhang Izquierdo PCA. jrd 11:53 The patient / caregiver is instructed regarding the plan of care and ED course. Patient ttb has correct armband on for positive identification. Placed in gown. Bed in low position. Call light in reach. Side rails up X2. cleat blanker on. Pulse ox on. NIBP on. 11:54 Seizure precautions initiated. ttb 12:01 Patient visited by Johanna Peterson RN. ead 12:01 Hcg, Serum Quantitative Sent. ttb 12:01 Basic Metabolic Profile Sent. ttb 12:01 CBC with Diff Sent. ttb 12:01 Inserted saline lock: 20 gauge in right antecubital area and blood collected. The ead patient tolerated the procedure well. 12:05 Labs drawn. (by ED staff). ttb 12:07 Patient visited by Lisandra Yanes RN. ttb 12:14 Haresh Peck FNP is PHCP. ke 12:14 Patient visited by Haresh Peck FNP. ke 12:15 Patient visited by Haresh Peck FNP. ke 12:42 Patient visited by Lisandra Yanes RN. ttb 13:12 Patient visited by Haresh Peck FNP. ke 13:41 Patient visited by Lisandra Yanes RN. ttb 13:43 [facility] is Referral Physician. ke 13:44 Dacia Avitia MD is Referral Physician. ke 13:44 Anson Serna MD is Referral Physician. ke 14:00 Keppra (short red top tube) Sent. ttb 14:07 Patient visited by Lisandra Yanes RN. ttb 14:15 Discontinued IV lock intact, bleeding controlled, pressure dressing applied, No ttb redness/swelling at site. No procedures done that require assistance. Urine collected. Clean catch specimen. 14:42 Patient name changed from Vondra\\S\\\\S\\Brown\\S\\ to Vondra\\S\\Marylin\\S\\Brown. EDMS 14:45 [place] [place] was scanned into [employer] and attached to record. jp5 18:47 T-Sheet-- Draft Copy was scanned into [employer] and attached to record. klr 10/17 10:43 PCR was scanned into [employer] and attached to record. gb 11:20 CT Head Without Contrast Returned. EDMS Administered Medications: 10/16 12:15 Not Given (no sz activity): LORazepam 0.5 mg IVP once ke 12:35 Drug: NS 0.9% 100 ml, Phenytoin 500 mg Route: IVPB; Infused Over: 30 mins; Site: right ttb antecubital; 13:20 Follow up: Response: No Adverse Reaction; No significant change.; IV Status: Completed ttb infusion; IV Intake: 100ml 12:41 Drug: Acetaminophen 975 mg [acetaminophen 325 mg tablet (3 tabs)] Route: PO; ttb 14:00 Drug: levETIRAcetam 500 mg [levetiracetam 250 mg tablet (2 tabs)] Route: PO; ttb 14:00 Drug: carvedilol 3.125 mg [carvedilol 3.125 mg tablet (1 tabs)] Route: PO; ttb 14:00 Drug: Plavix - Clopidogrel 75 mg [clopidogrel 75 mg tablet (1 tabs)] Route: PO; ttb Intake: 13:20 IV: 100.00ml; Total: 100.00ml. ttb Order Results: Lab Order: CBC with Diff; SPEC'M 10/16/16 12:00 Test: WHITE BLOOD COUNT; Value: 6.8; Range: 4.0-10.0; Units: K/mm3; Status: F Test: RED BLOOD COUNT; Value: 4.61; Range: 4.00-5.40; Units: M/mm3; Status: F Test: HEMOGLOBIN; Value: 11.7; Range: 12.0-16.0; Abnormal: Below low normal; Units: g/dl; Status: F Test: HEMATOCRIT; Value: 36.3; Range: 36.0-47.0; Units: %; Status: F Test: MEAN CORPUSCULAR VOLUME; Value: 78.7; Range: 80.0-96.0; Abnormal: Below low normal; Units: fl; Status: F Test: MEAN CORPUSCULAR HEMOGLOBIN; Value: 25.4; Range: 27.0-33.0; Abnormal: Below low normal; Units: pg; Status: F Test: MEAN CORPUSCULAR HGB CONC; Value: 32.2; Range: 32.0-36.5; Units: g/dl; Status: F Test: RED CELL DISTRIBUTION WIDTH; Value: 17.7; Range: 11.5-14.5; Abnormal: Above high normal; Units: %; Status: F Test: PLATELET COUNT, AUTOMATED; Value: 228; Range: 150-450; Units: k/mm3; Status: F Test: NEUTROPHILS %; Value: 71.1; Range: 36.0-66.0; Abnormal: Above high normal; Units: %; Status: F Test: LYMPH %; Value: 18.2; Range: 24.0-44.0; Abnormal: Below low normal; Units: %; Status: F Test: MONO %; Value: 4.3; Range: 0.0-5.0; Units: %; Status: F Test: EOS %; Value: 2.1; Range: 0.0-3.0; Units: %; Status: F Test: BASO %; Value: 1.9; Range: 0.0-1.0; Abnormal: Above high normal; Units: %; Status: F Test: LARGE UNSTAINED CELL %; Value: 2.5; Range: 0.0-4.0; Units: %; Status: F Test: NEUTROPHILS #; Value: 4.8; Range: 1.8-7.7; Units: K/mm3; Status: F Test: LYMPH #; Value: 1.4; Range: 1.5-4.5; Abnormal: Below low normal; Units: K/mm3; Status: F Test: MONO #; Value: 0.3; Range: 0.0-0.8; Units: K/mm3; Status: F Test: EOS #; Value: 0.1; Range: 0.0-0.50; Units: K/mm3; Status: F Test: BASO #; Value: 0.1; Range: 0.0-0.2; Units: K/mm3; Status: F Test: LARGE UNSTAINED CELL #; Value: 0.2; Range: 0.0-0.4; Units: K/mm3; Status: F Lab Order: Basic Metabolic Profile; SPEC'M 10/16/16 12:00 Test: GLUCOSE, FASTING; Value: 94; Range: 70-105; Units: MG/DL; Status: F Test: BLOOD UREA NITROGEN; Value: 5; Range: 7-18; Abnormal: Below low normal; Units: MG/DL; Status: F Test: CREATININE FOR GFR; Value: 0.83; Range: 0.55-1.02; Units: MG/DL; Status: F Test: GLOMERULAR FILTRATION RATE; Value: > 60.0; Range: >58; Status: F Test: SODIUM LEVEL; Value: 141; Range: 136-145; Units: MEQ/L; Status: F Test: POTASSIUM SERUM; Value: 4.1; Range: 3.5-5.1; Units: MEQ/L; Status: F Test: CHLORIDE LEVEL; Value: 106; Range: 98-107; Units: MEQ/L; Status: F Test: CARBON DIOXIDE LEVEL; Value: 25; Range: 21-32; Units: MEQ/L; Status: F Test: ANION GAP; Value: 10; Range: 8-16; Units: MEQ/L; Status: F Test: CALCIUM LEVEL; Value: 8.5; Range: 8.5-10.1; Units: MG/DL; Status: F Test Note: ; Units are mL/min/1.73 m2 Chronic Kidney Disease Staging per NKF: Stage I & II GFR >=60 Normal to Mildly Decreased Stage III GFR 30-59 Moderately Decreased Stage IV GFR 15-29 Severely Decreased Stage V GFR <15 Very Little GFR Left ESRD GFR <15 on HEALTH AND SAFETY ADVISOR Lab Order: Urinalysis; SPEC'M 10/16/16 11:59 Test: APPEARANCE, URINE; Value: CLEAR; Range: CLEAR; Status: F Test: COLOR, URINE; Value: STRAW; Range: YELLOW; Status: F Test: PH,URINE; Value: 7.0; Range: 5.0-9.0; Units: UNITS; Status: F Test: SPECIFIC GRAVITY URINE AUTO; Value: 1.008; Range: 1.002-1.035; Status: F Test: PROTEIN, URINE AUTO; Value: NEGATIVE; Range: NEGATIVE; Units: mg/dL; Status: F Test: GLUCOSE, URINE (UA) AUTO; Value: NEGATIVE; Range: NEGATIVE; Units: mg/dL; Status: F Test: KETONE, URINE AUTO; Value: NEGATIVE; Range: NEGATIVE; Units: mg/dL; Status: F Test: UROBILINOGEN, URINE AUTO; Value: 0.2; Range: 0.0-2.0; Units: mg/dL; Status: F Test: BILIRUBIN, URINE AUTO; Value: NEGATIVE; Range: NEGATIVE; Status: F Test: NITRITE, URINE AUTO; Value: NEGATIVE; Range: NEGATIVE; Status: F Test: LEUKOCYTE ESTERASE, URINE AUTO; Value: NEGATIVE; Range: NEGATIVE; Status: F Test: BLOOD, URINE BLOOD; Value: NEGATIVE; Range: NEGATIVE; Status: F Test: WBC, URINE AUTO; Value: 1; Range: 0-3; Units: /HPF; Status: F Test: RBC, URINE AUTO; Value: 0; Range: 0-3; Units: /HPF; Status: F Test: BACTERIA, URINE AUTO; Value: 1+; Range: NEGATIVE; Abnormal: Above high normal; Status: F Test: SQUAMOUS EPITHELIAL CELL UR AU; Value: 0; Range: 0-6; Units: /HPF; Status: F Test: HYALINE CAST, URINE AUTO; Value: 0; Range: 0-1; Units: /LPF; Status: F Lab Order: Urine Culture; SPEC'M 10/16/16 11:59 Test: URINE CULTURE; Value: <EXTERNAL COMMENT eCWMed> FULL REPORT IN LAB NOTES (eCW and Medent).; Status: F Test: URINE CULTURE; Value: URINE CULTURE RESULT NO GROWTH CLINICAL SIGNIFICANCE 1 ORGANISM; Status: F Lab Order: Hcg, Serum Quantitative; SPEC'M 10/16/16 12:00 Test: HCG, SERUM QUANTITATIVE; Value: < 1.0; Units: MIU/ML; Status: F Test Note: ; GESTATIONAL AGE APPROXIMATE HCG RANGE (MIU/ML) 0.2-1 WEEK 5-50 1-2 WEEKS 50-500 2-3 WEEKS 100-5,000 3-4 WEEKS 500-10,000 4-5 WEEKS 1,000-50,000 5-6 WEEKS 10,000-100,000 6-8 WEEKS 15,000-200,000 2-3 MONTHS 10,000-100,000 NON FEMALES LESS THAN 3.0 Patient samples may contain human heterophilic antibodies that could react with immunoassays to give falsely elevated or depressed results. This assay has been designed to minimize interference from heterophilic antibodies. Elevated hCG levels have also been associated with trophoblastic disease and nontrophoblastic neoplasms. The possibility of having these diseases should be considered before a diagnosis of is made. This test is not intended for use as a surrogate marker for aiding in the diagnosis or monitoring the treatment of cancer patients. Siemens [id number] methodology. Lab Order: PHENYTOIN; SPEC'M 10/16/16 12:00 Test: PHENYTOIN (DILANTIN); Value: < 0.4; Range: 10.0-20.0; Abnormal: Below low normal; Units: UG/ML; Status: F Lab Order: Urine Toxicology; SPEC'M 10/16/16 11:59 Test: AMPHETAMINES LEVEL URINE; Value: NEGATIVE; Range: NEGATIVE; Status: F Test: BARBITURATES URINE; Value: NEGATIVE; Range: NEGATIVE; Status: F Test: BENZODIAZEPINES URINE; Value: NEGATIVE; Range: NEGATIVE; Status: F Test: CANNABINOIDS URINE; Value: POSITIVE; Range: NEGATIVE; Abnormal: Above high normal; Status: F Test: COCAINE METABOLITE URINE; Value: NEGATIVE; Range: NEGATIVE; Status: F Test: METHADONE URINE; Value: NEGATIVE; Range: NEGATIVE; Status: F Test: OPIATES URINE; Value: NEGATIVE; Range: NEGATIVE; Status: F Test: TRICYCLIC ANTIDEPRESS URINE; Value: NEGATIVE; Range: NEGATIVE; Status: F Test Note: ; FALSE POSITIVE RESULTS CAN BE CAUSED BY THE USE OF PANTOPRAZOLE (PROTONIX). Lab Order: ETHYL ALCOHOL (ETHANOL); SPEC'M 10/16/16 12:00 Test: ETHYL ALCOHOL (ETHANOL); Value: < 0.003; Range: 0.000-0.010; Units: %; Status: F Radiology Order: CT Head Without Contrast Test: CT Head Without Contrast REASON FOR EXAMINATION: sz; CT of the brain without IV contrast:; ; There are no comparisons.; ; There is no hemorrhage.; ; There is no edema, mass effect or midline shift.; ; The cortical stripe is unremarkable.; ; Ventricles are normal size and midline. The; ; Impression:; ; There is no hemorrhage, acute infarct or mass. Essentially negative CT study of; the brain.; ; ; Signed by; Johnny James MD 10/16/2016 01:04 P; Outcome: 13:45 Discharge ordered by Provider. ke 14:15 CT Study completed. Property :Personal belongings accompany Pt. ttb 14:27 Discharge Assessment: Patient awake, alert and oriented x 3. No cognitive and/or ttb functional deficits noted. Patient verbalized understanding of disposition instructions. Patient awake and alert. patient administered narcotics - no. The following High Risk Discharge criteria are identified: None. Discharged to home ambulatory, via wheelchair, with family. Condition: good Condition: stable Condition: improved. Discharge instructions given to patient, family, Instructed on discharge instructions, follow up and referral plans. medication usage, safety practices, Demonstrated understanding of instructions, medications, Pt was receptive of discharge instructions/ teaching. Prescriptions given X x6. 14:31 Patient left the ED. ttb Signatures: Dispatcher [employer] EDMS Rosamaria Leal, Roller Varnisher Unit deg Helga Reddy, Reg Reg gb Haresh Peck, TOOL AND DIE DESIGNER Lisandra Bradford, RN RN ttb Johanna Peterson,RN RN Zhang Fontanez, SHIRA LMSW Reji Archer Kathie klr Corrections: (The following items were deleted from the chart) 12:25 12:01 PHENYTOIN (DILANTIN)+LAB sent. ttb EDMS Chart Complete MTDD
== END 2016-10-16 14:31 | disposition home or self-care (01) ==
LOC: M ED 11:42
DX: G40.909 Epilepsy, unspecified, not intractable, without status epilepticus (principal); Z91.19 Patient's noncompliance with other medical treatment and regimen; I10 Essential (primary) hypertension; R01.1 Cardiac murmur, unspecified; Z86.73 Personal history of transient ischemic attack (TIA), and cerebral infarction without residual deficits; Z79.899 Other long term (current) drug therapy; Z79.01 Long term (current) use of anticoagulants; F17.210 Nicotine dependence, cigarettes, uncomplicated
CPT/HCPCS: 36415; 70450; 80048; 80180; 80185; 80306; 81001; 84702; 85025; 87086; 96365; 99285; G0480; J1165

== ENCOUNTER 2016-11-13 12:29 | Emergency (ER) | payer SELFPAY ==
--- NOTE | 2016-11-13 13:38 | EDDOCDS ---
Nurse's Notes [facility] Name: Sabrina Greenfield Age: 46 yrs Sex: Female : 1970 Arrival Date: 11/13/2016 Time: 12:29 Bed TR8 Private MD: Diagnosis: Benign paroxysmal vertigo;Encounter for issue of repeat prescription Presentation: 11/13 12:37 Presenting complaint: Patient states: "equilibrium is off and I'm feeling pretty dizzy, ttb slight headache". Since yesterday or the day before. No Keppra or maintenance meds for the past week. No PCP here. Adult Sepsis Screening: The patient does not have new or worsening altered mentation. Patient's respiratory rate is less than 22. Systolic blood pressure is greater than 100. Patient has a qSOFA score of 0- Negative Sepsis Screen. Suicide/Homicide risk assessment- the patient denies having any suicidal and/or homicidal ideations and does not present with any other emotional, behavioral or mental health complaints. 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 Transition of care: patient was not received from another setting of care. 12:37 Acuity: GARRETT Level 3 ttb 12:37 Method Of Arrival: Walkin/Carried/Asstd ttb Triage Assessment: 12:41 General: Appears in no apparent distress, well nourished, well groomed, Behavior is ttb appropriate for age, cooperative, pleasant. Pain: Location: headache 4/10. HIV screening NA for this visit Offered previously. Neurological: Level of Consciousness is awake, alert, vision is "getting blurrier". Neurological: Denies weakness Reports blurred vision headache. Cardiovascular: Chest pain is denied. Respiratory: No deficits noted. Airway is patent Respiratory effort is even, unlabored. Derm: Skin is normal. 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 levetiracetam 500 mg oral tab 1 tab 2 times per day (Last dose: 11/05/2016) 2. Dilantin Oral 300 mg twice a day (Last dose: 11/13/2016 08:00) 3. carvedilol 3.125 mg oral tab 1 tab (Last dose: 11/05/2016) 4. Plavix 75 mg Oral tab 1 tab once daily (Last dose: 11/05/2016) 5. lisinopril 2.5 mg Oral tab 1 tab once daily (Last dose: 11/05/2016) - PMHx: Heart Murmur; Hypertension; Seizures; - PSHx: Tubal ligation; - Social history: Smoking status: Patient uses tobacco products, current some day smoker. Patient uses street drugs, marijuana, Patient/guardian denies using alcohol, No barriers to communication noted, The patient speaks fluent Chinese, Speaks appropriately for age. - Family history: Not pertinent. - : The pt / caregiver states he / she is on anticoagulants: Plavix. Home medication list is obtained from the patient, family members, [employer] import data. - Exposure Risk Screening:: None identified. Screenin:32 Screening information is obtained from the patient. Fall risk: No risks identified. ms18 Assistance ADL's: requires no assistance with activities of daily living. Abuse/DV Screen: The patient / caregiver reports he/she is: not in a situation that causes fear, pain or injury. Nutritional screening: No deficits noted. Advance Directives: There is no living will. home support is adequate. Assessment: 13:32 General: Appears in no apparent distress, comfortable, Behavior is appropriate for age, ms18 cooperative, pleasant. Pain: Denies pain. Neurological: Level of Consciousness is awake, alert, obeys commands, Oriented to person, place, time, Reports dizziness. Respiratory: No deficits noted. Airway is patent Respiratory effort is even, unlabored. Derm: Skin is pink, warm & dry. normal. Vital Signs: 12:31 BP 179 / 102; Pulse 56; Resp 16; Temp 97.9(O); Pulse Ox 99% on R/A; Weight 62.6 kg (R); lr2 Height 5 ft. 8 in. (172.72 cm) (R); Pain 4/10; 13:21 BP 152 / 82; Pulse 51; Resp 18; Temp 99.7(TE); Pulse Ox 100% on R/A; Pain 4/10; ar3 12:31 Body Mass Index 20.98 (62.60 kg, 172.72 cm) lr2 Vitals: 12:31 Log In Time: November 13, 2016 at 12:29. lr2 ED Course: 12:30 Patient visited by Nia Jimenez. lr2 12:30 Patient moved to Waiting lr2 12:33 Patient moved to Pre RCE lr2 12:39 Triage Initiated ttb 12:43 Patient moved to Triage 2 ttb 12:44 Patient moved to Triage 3 ar3 13:02 [facility] cc[facility] 13:02 Pratik Echavarria MD is Attending Physician. cc10 13:08 Patient visited by Roberto Murphy PA-C. cc10 13:08 Patient visited by Roberto Murphy PA-C. cc10 13:16 [facility] is Referral Physician. cc10 13:22 Patient visited by Yumiko Baker PCA. ar3 13:32 Patient visited by Kayleigh Santana RN. ms18 13:32 Patient moved to TR8 ar3 13:32 The patient / caregiver is instructed regarding the plan of care and ED course. Patient ms18 has correct armband on for positive identification. Property sent home with patient. :Personal belongings accompany Pt. 13:32 No IV's were initiated during this patient's visit. No procedures done that require ms18 assistance. Order Results: There are currently no results for this order. Outcome: 13:16 Discharge ordered by Provider. cc10 13:32 Discharge Assessment: Patient awake, alert and oriented x 3. No cognitive and/or ms18 functional deficits noted. Patient verbalized understanding of disposition instructions. patient administered narcotics - no. The following High Risk Discharge criteria are identified: None. Discharged to home ambulatory, with family. Condition: good Condition: stable. Discharge instructions given to patient, family, Instructed on discharge instructions, follow up and referral plans. medication usage, Demonstrated understanding of instructions, medications, Pt was receptive of discharge instructions/ teaching. Prescriptions given X 4, Pt states that she only take Keppra and doesn't take the Dilantin anymore. ED provider was told this and canceled the prescription for Dilantin. Pt and family aware of this. No special radiology studies were completed. 13:38 Patient left the ED. ms18 Signatures: Yumiko Baker PCA NEIGHBORHOOD COORDINATOR ar3 Lisandra Yanes RN RN ttb Roberto Murphy PA-C PA-C cc10 Kayleigh Santana RN RN ms18 Ross, Nia lr2 MTDD
--- NOTE | 2016-11-13 13:38 | EDDOCDS ---
Physician Documentation [facility] Name: Sabrina Greenfield Age: 46 yrs Sex: Female : 1970 Arrival Date: 11/13/2016 Time: 12:29 Bed TR8 Private MD: Disposition: 11/13/16 13:16 Discharged to Home/Self Care. Impression: Benign paroxysmal vertigo, Encounter for issue of repeat prescription. - Condition is Stable. - Discharge Instructions: Benign Positional Vertigo, Medicine Refill at the Emergency Department. - Prescriptions for Meclizine 25 mg Oral Tablet - take 1 tablet by ORAL route every 8 hours As needed; 30 tablet. levetiracetam 500 mg Oral tablet - take 1 tablet by ORAL route 2 times per day; 20 tablet. Lisinopril 2.5 mg Oral Tablet - take 1 tablet by ORAL route once daily; 10 tablet. Carvedilol 6.25 mg Oral Tablet - take 0.5 tablet by ORAL route once daily with food; 10 tablet. - Medication Reconciliation form. - Follow up: [facility]; When: Call to arrange an appointment; Reason: To establish care. - Problem is an ongoing problem. - Symptoms are unchanged. Historical: - Allergies: no known allergies; - Home Meds: 1. levetiracetam 500 mg oral tab 1 tab 2 times per day (Last dose: 11/05/2016) 2. Dilantin Oral 300 mg twice a day (Last dose: 11/13/2016 08:00) 3. carvedilol 3.125 mg oral tab 1 tab (Last dose: 11/05/2016) 4. Plavix 75 mg Oral tab 1 tab once daily (Last dose: 11/05/2016) 5. lisinopril 2.5 mg Oral tab 1 tab once daily (Last dose: 11/05/2016) - PMHx: Heart Murmur; Hypertension; Seizures; - PSHx: Tubal ligation; - Social history: Smoking status: Patient uses tobacco products, current some day smoker. Patient uses street drugs, marijuana, Patient/guardian denies using alcohol, No barriers to communication noted, The patient speaks fluent Bengali, Speaks appropriately for age. - Family history: Not pertinent. - : The pt / caregiver states he / she is on anticoagulants: Plavix. Home medication list is obtained from the patient, family members, [employer] import data. - Exposure Risk Screening:: None identified. 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 8 in. (172.72 cm) (R); Pain 4/10; 13:21 BP 152 / 82; Pulse 51; Resp 18; Temp 99.7(TE); Pulse Ox 100% on R/A; Pain 4/10; ar3 12:31 Body Mass Index 20.98 (62.60 kg, 172.72 cm) lr2 MDM: 13:17 Vital Signs ordered. cc10 Signatures: Lisandra Yanes RN RN ttb Roberto Murphy PA-C PAKarissa cc10 Kayleigh Santana RN RN ms18 ESTEBAND
--- NOTE | 2016-11-15 14:38 | EDDOCDS ---
Physician Documentation [facility] Name: Sabrina Greenfield Age: 46 yrs Sex: Female : 1970 Arrival Date: 11/13/2016 Time: 12:29 Bed TR8 Private MD: Disposition: 11/13/16 13:16 Discharged to Home/Self Care. Impression: Benign paroxysmal vertigo, Encounter for issue of repeat prescription. - Condition is Stable. - Discharge Instructions: Benign Positional Vertigo, Medicine Refill at the Emergency Department. - Prescriptions for Meclizine 25 mg Oral Tablet - take 1 tablet by ORAL route every 8 hours As needed; 30 tablet. levetiracetam 500 mg Oral tablet - take 1 tablet by ORAL route 2 times per day; 20 tablet. Lisinopril 2.5 mg Oral Tablet - take 1 tablet by ORAL route once daily; 10 tablet. Carvedilol 6.25 mg Oral Tablet - take 0.5 tablet by ORAL route once daily with food; 10 tablet. - Medication Reconciliation form. - Follow up: [facility]; When: Call to arrange an appointment; Reason: To establish care. - Problem is an ongoing problem. - Symptoms are unchanged. Historical: - Allergies: no known allergies; - Home Meds: 1. levetiracetam 500 mg oral tab 1 tab 2 times per day (Last dose: 11/05/2016) 2. Dilantin Oral 300 mg twice a day (Last dose: 11/13/2016 08:00) 3. carvedilol 3.125 mg oral tab 1 tab (Last dose: 11/05/2016) 4. Plavix 75 mg Oral tab 1 tab once daily (Last dose: 11/05/2016) 5. lisinopril 2.5 mg Oral tab 1 tab once daily (Last dose: 11/05/2016) - PMHx: Heart Murmur; Hypertension; Seizures; - PSHx: Tubal ligation; - Social history: Smoking status: Patient uses tobacco products, current some day smoker. Patient uses street drugs, marijuana, Patient/guardian denies using alcohol, No barriers to communication noted, The patient speaks fluent Urdu, Speaks appropriately for age. - Family history: Not pertinent. - : The pt / caregiver states he / she is on anticoagulants: Plavix. Home medication list is obtained from the patient, family members, [employer] import data. - Exposure Risk Screening:: None identified. 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 8 in. (172.72 cm) (R); Pain 4/10; 13:21 BP 152 / 82; Pulse 51; Resp 18; Temp 99.7(TE); Pulse Ox 100% on R/A; Pain 4/10; ar3 12:31 Body Mass Index 20.98 (62.60 kg, 172.72 cm) lr2 MDM: 13:17 Vital Signs ordered. cc10 11/14 09:25 T-Sheet-- Draft Copy was scanned into [employer] and attached to record. gb Signatures: Helga Reddy, Reg Reg gb Lisandra Yanes RN RN ttb Roberto Murphy, PA-C PA-C cc10 Kayleigh Santana RN RN ms18 The chart was reviewed and I authenticate all verbal orders and agree with the evaluation and treatment provided.Attachments: 09:25 T-Sheet-- Draft Copy gb Chart Complete MTDD
--- NOTE | 2016-11-15 14:38 | EDDOCDS ---
Physician Documentation [facility] Name: Sabrina Greenfield Age: 46 yrs Sex: Female : 1970 Arrival Date: 11/13/2016 Time: 12:29 Bed TR8 Private MD: Disposition: 11/13/16 13:16 Discharged to Home/Self Care. Impression: Benign paroxysmal vertigo, Encounter for issue of repeat prescription. - Condition is Stable. - Discharge Instructions: Benign Positional Vertigo, Medicine Refill at the Emergency Department. - Prescriptions for Meclizine 25 mg Oral Tablet - take 1 tablet by ORAL route every 8 hours As needed; 30 tablet. levetiracetam 500 mg Oral tablet - take 1 tablet by ORAL route 2 times per day; 20 tablet. Lisinopril 2.5 mg Oral Tablet - take 1 tablet by ORAL route once daily; 10 tablet. Carvedilol 6.25 mg Oral Tablet - take 0.5 tablet by ORAL route once daily with food; 10 tablet. - Medication Reconciliation form. - Follow up: [facility]; When: Call to arrange an appointment; Reason: To establish care. - Problem is an ongoing problem. - Symptoms are unchanged. Historical: - Allergies: no known allergies; - Home Meds: 1. levetiracetam 500 mg oral tab 1 tab 2 times per day (Last dose: 11/05/2016) 2. Dilantin Oral 300 mg twice a day (Last dose: 11/13/2016 08:00) 3. carvedilol 3.125 mg oral tab 1 tab (Last dose: 11/05/2016) 4. Plavix 75 mg Oral tab 1 tab once daily (Last dose: 11/05/2016) 5. lisinopril 2.5 mg Oral tab 1 tab once daily (Last dose: 11/05/2016) - PMHx: Heart Murmur; Hypertension; Seizures; - PSHx: Tubal ligation; - Social history: Smoking status: Patient uses tobacco products, current some day smoker. Patient uses street drugs, marijuana, Patient/guardian denies using alcohol, No barriers to communication noted, The patient speaks fluent Latvian, Speaks appropriately for age. - Family history: Not pertinent. - : The pt / caregiver states he / she is on anticoagulants: Plavix. Home medication list is obtained from the patient, family members, [employer] import data. - Exposure Risk Screening:: None identified. 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 8 in. (172.72 cm) (R); Pain 4/10; 13:21 BP 152 / 82; Pulse 51; Resp 18; Temp 99.7(TE); Pulse Ox 100% on R/A; Pain 4/10; ar3 12:31 Body Mass Index 20.98 (62.60 kg, 172.72 cm) lr2 MDM: 13:17 Vital Signs ordered. cc10 11/14 09:25 T-Sheet-- Draft Copy was scanned into [employer] and attached to record. gb Signatures: Helga Reddy, Reg Reg gb Lisandra Yanes RN RN ttb Roberto Murphy, PA-C PA-C cc10 Kayleigh Santana RN RN ms18 The chart was reviewed and I authenticate all verbal orders and agree with the evaluation and treatment provided.Attachments: 09:25 T-Sheet-- Draft Copy gb Chart Complete MTDD
--- NOTE | 2016-11-15 14:38 | EDDOCDS ---
Nurse's Notes [facility] Name: Sabrina Greenfield Age: 46 yrs Sex: Female : 1970 Arrival Date: 11/13/2016 Time: 12:29 Bed TR8 Private MD: Diagnosis: Benign paroxysmal vertigo;Encounter for issue of repeat prescription Presentation: 11/13 12:37 Presenting complaint: Patient states: "equilibrium is off and I'm feeling pretty dizzy, ttb slight headache". Since yesterday or the day before. No Keppra or maintenance meds for the past week. No PCP here. Adult Sepsis Screening: The patient does not have new or worsening altered mentation. Patient's respiratory rate is less than 22. Systolic blood pressure is greater than 100. Patient has a qSOFA score of 0- Negative Sepsis Screen. Suicide/Homicide risk assessment- the patient denies having any suicidal and/or homicidal ideations and does not present with any other emotional, behavioral or mental health complaints. 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 Transition of care: patient was not received from another setting of care. 12:37 Acuity: GARRETT Level 3 ttb 12:37 Method Of Arrival: Walkin/Carried/Asstd ttb Triage Assessment: 12:41 General: Appears in no apparent distress, well nourished, well groomed, Behavior is ttb appropriate for age, cooperative, pleasant. Pain: Location: headache 4/10. HIV screening NA for this visit Offered previously. Neurological: Level of Consciousness is awake, alert, vision is "getting blurrier". Neurological: Denies weakness Reports blurred vision headache. Cardiovascular: Chest pain is denied. Respiratory: No deficits noted. Airway is patent Respiratory effort is even, unlabored. Derm: Skin is normal. 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 levetiracetam 500 mg oral tab 1 tab 2 times per day (Last dose: 11/05/2016) 2. Dilantin Oral 300 mg twice a day (Last dose: 11/13/2016 08:00) 3. carvedilol 3.125 mg oral tab 1 tab (Last dose: 11/05/2016) 4. Plavix 75 mg Oral tab 1 tab once daily (Last dose: 11/05/2016) 5. lisinopril 2.5 mg Oral tab 1 tab once daily (Last dose: 11/05/2016) - PMHx: Heart Murmur; Hypertension; Seizures; - PSHx: Tubal ligation; - Social history: Smoking status: Patient uses tobacco products, current some day smoker. Patient uses street drugs, marijuana, Patient/guardian denies using alcohol, No barriers to communication noted, The patient speaks fluent Tristanian, Speaks appropriately for age. - Family history: Not pertinent. - : The pt / caregiver states he / she is on anticoagulants: Plavix. Home medication list is obtained from the patient, family members, [employer] import data. - Exposure Risk Screening:: None identified. Screenin:32 Screening information is obtained from the patient. Fall risk: No risks identified. ms18 Assistance ADL's: requires no assistance with activities of daily living. Abuse/DV Screen: The patient / caregiver reports he/she is: not in a situation that causes fear, pain or injury. Nutritional screening: No deficits noted. Advance Directives: There is no living will. home support is adequate. Assessment: 13:32 General: Appears in no apparent distress, comfortable, Behavior is appropriate for age, ms18 cooperative, pleasant. Pain: Denies pain. Neurological: Level of Consciousness is awake, alert, obeys commands, Oriented to person, place, time, Reports dizziness. Respiratory: No deficits noted. Airway is patent Respiratory effort is even, unlabored. Derm: Skin is pink, warm & dry. normal. Vital Signs: 12:31 BP 179 / 102; Pulse 56; Resp 16; Temp 97.9(O); Pulse Ox 99% on R/A; Weight 62.6 kg (R); lr2 Height 5 ft. 8 in. (172.72 cm) (R); Pain 4/10; 13:21 BP 152 / 82; Pulse 51; Resp 18; Temp 99.7(TE); Pulse Ox 100% on R/A; Pain 4/10; ar3 12:31 Body Mass Index 20.98 (62.60 kg, 172.72 cm) lr2 Vitals: 12:31 Log In Time: November 13, 2016 at 12:29. lr2 ED Course: 12:30 Patient visited by Nia Jimenez. lr2 12:30 Patient moved to Waiting lr2 12:33 Patient moved to Pre RCE lr2 12:39 Triage Initiated ttb 12:43 Patient moved to Triage 2 ttb 12:44 Patient moved to Triage 3 ar3 13:02 Roberto Murphy [facility] cc[facility] 13:02 Pratik Echavarria MD is Attending Physician. cc10 13:08 Patient visited by Roberto Murphy PA-C. cc10 13:08 Patient visited by Roberto Murphy PA-C. cc10 13:16 [facility] is Referral Physician. cc10 13:22 Patient visited by Yumiko Baker PCA. ar3 13:32 Patient visited by Kayleigh Santana RN. ms18 13:32 Patient moved to TR8 ar3 13:32 The patient / caregiver is instructed regarding the plan of care and ED course. Patient ms18 has correct armband on for positive identification. Property sent home with patient. :Personal belongings accompany Pt. 13:32 No IV's were initiated during this patient's visit. No procedures done that require ms18 assistance. 11/14 09:25 T-Sheet-- Draft Copy was scanned into [employer] and attached to record. gb Order Results: There are currently no results for this order. Outcome: 11/13 13:16 Discharge ordered by Provider. cc10 13:32 Discharge Assessment: Patient awake, alert and oriented x 3. No cognitive and/or ms18 functional deficits noted. Patient verbalized understanding of disposition instructions. patient administered narcotics - no. The following High Risk Discharge criteria are identified: None. Discharged to home ambulatory, with family. Condition: good Condition: stable. Discharge instructions given to patient, family, Instructed on discharge instructions, follow up and referral plans. medication usage, Demonstrated understanding of instructions, medications, Pt was receptive of discharge instructions/ teaching. Prescriptions given X 4, Pt states that she only take Keppra and doesn't take the Dilantin anymore. ED provider was told this and canceled the prescription for Dilantin. Pt and family aware of this. No special radiology studies were completed. 13:38 Patient left the ED. ms18 Signatures: Helga Reddy, Reg Reg gb Yumiko Baker, PRECIPITATION EQUIPMENT TENDER PRECIPITATION EQUIPMENT TENDER ar3 Lisandra Yanes, RN RN ttb Roberto Murphy, PAArnoldC PA-C cc10 Kayleigh Santana,RN RN ms18 Nia Jimenez lr2 Chart Complete MTDD
== END 2016-11-13 13:38 | disposition home or self-care (01) ==
LOC: M ED 12:29
DX: Z76.0 Encounter for issue of repeat prescription (principal); H81.10 Benign paroxysmal vertigo, unspecified ear; I10 Essential (primary) hypertension; R56.9 Unspecified convulsions; R01.1 Cardiac murmur, unspecified; Z79.899 Other long term (current) drug therapy; Z79.01 Long term (current) use of anticoagulants; F17.210 Nicotine dependence, cigarettes, uncomplicated